=== PATIENT | male | born 1985 | race Caucasian/White ===

== ENCOUNTER 2020-05-30 12:45 | Emergency (ER) | payer OTHER, SELFPAY ==
[2020-05-30 13:00] VITALS: BP 125/81; PULSE 87; RESP 18; TEMP 36.2; O2SAT 98; BMI 24.3
--- NOTE | 2020-05-30 13:24 | HMH.EDUTC ---
[facility] [place] Disposition Clinical Impression: Jaw pain, non-TMJ, Pain, dental Disposition: Home, Self-Care Condition on Discharge: Good Instructions: DI for Dental Pain Additional Instructions: You have to follow up with a dentist. Take the medications as directed. Follow up with you primary care doctor. GO TO THE ER FOR ANY WORSENING SYMPTOMS OR CONCERNS Prescriptions: Ibuprofen [Ibuprofen 800mg Tablet] 800 mg PO Q8HP PRN #30 tab PRN Reason: Moderate Pain Transmission Status: Received by [facility] Amoxicillin [Amoxicillin 500mg Tab] 500 mg PO TID 10 Days #30 tab Transmission Status: Received by [facility] Referrals: Ephraim Bentley MD [Primary Care Provider] - Forms: Work/School Release Time of Disposition: 13:38 Medical Decision Making - Medical Records Medical records reviewed: No: I reviewed the patient's medical records. - Tito Inquiry Pt receiving controlled substance: No Vital Signs: 05/30/20 13:00 05/30/20 13:36 05/30/20 13:51 Temperature 97.2 F L 97.2 F L 97.2 F L Temperature Source Oral Oral Pulse Rate 87 87 Pulse Rate [Radial] 87 Respiratory Rate 18 18 18 Blood Pressure 125/81 125/81 Blood Pressure [Right Arm] 125/81 Blood Pressure Mean [Right Arm] 95 Blood Pressure Source Automatic Cuff Blood Pressure Source [Right Arm] Automatic Cuff Blood Pressure Position Sitting Blood Pressure Position [Right Arm] Sitting 02 Sat by Pulse Oximetry 98 Oxygen Delivery Method Room Air Room Air [facility] [place] HPI - General Stated complaint: wisdom teeth pain Time Seen by Provider: 05/30/20 13:24 Mode of Arrival: Ambulatory Source of Information: Patient Limitations: No Limitations Description of Symptoms (Recalled from Triage Doc. by RN): dental pain on and off for over a year HEENT Symptoms (Recalled from RN notes): No Resp Symptoms (Recalled from RN notes): No Skin Symptoms (Recalled from RN notes): No MS Symptoms (Recalled from RN notes): No Functional Status (Recalled from RN notes): wnl - History of Present Illness Provider Complaint: He c/o dental pain of his back teeth on both sides of his mouth. He states that he thinks that he is cutting wisdom teeth and it is painful. - Related Data Previous Rx's Medication Instructions Recorded Amoxicillin [Amoxicillin 500mg Tab] 500 mg PO TID 10 Days #30 tab 05/30/20 Ibuprofen [Ibuprofen 800mg 800 mg PO Q8HP PRN #30 tab 05/30/20 Tablet] Allergies Allergy/AdvReac Type Severity Reaction Status Date / Time No Known Allergies Allergy Verified 05/30/20 13:03 - Worker's Comp Is this a Worker's Comp case?: No H History - Hepatitis A Screen Drug use history?: No High risk sexual behaviors?: No History of sexually transmitted infection?: No Currently employed?: No Childcare worker?: No Do you have indoor plumbing?: Yes Do you have electricity?: Yes Attestation statement:: This patient has been screened for Hepatitis A risk factors. I have reviewed the patient's past medical history: Yes - Social History Alcohol Intake: never Occupational Status: other ROS Obtained: Yes All systems reviewed & no additional complaints - Constitutional Constitutional: Denies chills, Denies fever(s) - Eyes Eyes: Reports system reviewed and no additional complaints, except as docu - ENT Ears, Nose, Mouth, and Throat: Reports as per HPI - Cardiovascular Cardiovascular: Reports system reviewed and no additional complaints, except as docu - Respiratory Respiratory: Yes system reviewed and no additional complaints, except as docu - Gastrointestinal Gastrointestingal: Reports: system reviewed and no additional complaints, except as docu Physical Exam - General General appearance: alert, in no apparent distress - Head Head exam: atraumatic, normocephalic, normal inspection - Eye Eye exam: Present: normal appearance, PERRL, EOMI - ENT ENT exam: Present: normal exam
[2020-05-30 13:36] VITALS: BP 125/81; PULSE 87; RESP 18; TEMP 36.2; O2SAT 98
[2020-05-30 13:51] VITALS: BP 125/81; PULSE 87; RESP 18; TEMP 36.2; O2SAT 98
== END 2020-05-30 13:51 | disposition home or self-care (01) ==
PROVIDERS: Emergency Provider Nurse Practitioner Family; PCP Family Medicine
DX: K08.89 Other specified disorders of teeth and supporting structures (principal)
CPT/HCPCS: 99201

== ENCOUNTER 2020-12-27 12:55 | Emergency (ER) | payer OTHER, SELFPAY ==
[2020-12-27] VITALS (13 sets, daily range): BP systolic 94–135; BP diastolic 56–69; PULSE 71–108; RESP 18–24; TEMP 36.5–36.9; O2SAT 87–99; BMI 29.5; BMI 27.2
--- NOTE | 2020-12-27 13:03 | HMH.EDGENADL ---
ED Disposition Clinical Impression: Drug overdose, multiple drugs, Drug-induced interstitial lung disorders Disposition: Home, Self-Care Condition on Discharge: Good Additional Instructions: You have to see a outreach specialist and primary care physician for follow-up use inhalers as needed. Return to ED if new symptoms or worsening of symptoms. Consult with your PCP regarding rehabilitaion of drug abuse. Follow up with PCP in 48 hours. Prescriptions: Albuterol Sulfate [Albuterol Sulfate Hfa] 6.7 gm IH TID 30 Days #1 [email or web address] Transmission Status: Pending to [facility] levoFLOXacin [Levaquin 500mg tab] 500 mg PO DAILY 10 Days #10 tab Transmission Status: Pending to [facility] Montelukast Sodium [Singulair 10mg tablet] 10 mg PO PM 30 Days #30 tab Transmission Status: Pending to [facility] Referrals: Provider,Referral, [Primary Care Provider] - - Critical Care Critical Care Time: No Attestation: On , the high probability of a clinically significant, sudden or life threatening deterioration of the following system(s) required my full and direct attention, intervention and personal management. The time I documented below is in addition to time spent performing reported procedures but includes the following listed in this critical care notation. Medical Decision Making - Medical Records MR Comment: patient was given Narcan 2 doses in route to the emergency room by the motorcycle police and EMS. Patient arrived to the scene very alert and oriented. Chest x-ray shows chronic granulomatous changes due to probably too long history of in relation of drugs in different ways.Patchy consolidation throughout both lungs, likely representing. multifocal. infection. Patient does not have any leukocytosis or fever. His troponin is slightly elevated due to meth use it was repeated after 2 hours. His EKG is completely normal. suspected cocaine abuse and subsequent drud induced interstitial lung disorder. Patchy ground-glass opacification is present throughout both lungs. This is. nonspecific, but could represent acute infection, pulmonary edema,. pulmonary. hemorrhage, or acute hypersensitivity pneumonitis. Clinical and. laboratory. correlation is recommended. His EKG was normal was repeated and was normal. He denies any history of chest pain. He has been using cocaine and the short period of anoxia may contributed to this. - Tito Inquiry Pt receiving controlled substance: No Tito was queried for this patient: No Vital Signs: 12/27/20 12:56 12/27/20 13:30 12/27/20 14:00 Temperature 97.7 F Temperature Source Oral Pulse Rate 98 H 98 H Pulse Rate [Right] 108 H Respiratory Rate 24 20 22 Blood Pressure 129/69 121/66 Blood Pressure [Right Arm] 135/66 Blood Pressure Mean [Right Arm] 89 Blood Pressure Source [Right Arm] Automatic Cuff 02 Sat by Pulse Oximetry 91 L 99 99 Oxygen Delivery Method Nasal Cannula Oxygen Flow Rate (LPM) 4 12/27/20 14:30 12/27/20 15:00 12/27/20 15:30 Temperature Temperature Source Pulse Rate 100 H 95 H 91 H Pulse Rate [Right] Respiratory Rate 24 18 18 Blood Pressure 128/68 120/64 112/60 Blood Pressure [Right Arm] Blood Pressure Mean [Right Arm] Blood Pressure Source [Right Arm] 02 Sat by Pulse Oximetry 97 97 94 L Oxygen Delivery Method Oxygen Flow Rate (LPM) 12/27/20 16:00 12/27/20 16:30 12/27/20 17:30 Temperature Temperature Source Pulse Rate 87 89 86 Pulse Rate [Right] Respiratory Rate 18 18 20 Blood Pressure 110/60 112/56 L 113/66 Blood Pressure [Right Arm] Blood Pressure Mean [Right Arm] Blood Pressure Source [Right Arm] 02 Sat by Pulse Oximetry 95 98 94 L Oxygen Delivery Method Nasal Cannula Nasal Cannula Oxygen Flow Rate (LPM) 4 12/27/20 18:34 12/27/20 18:39 12/27/20 18:40 Temperature Temperature Source Pulse Rate 97 H 90 Pulse Rate [Right] Respir
--- NOTE | 2020-12-27 14:20 | CT_ITS ---
PROCEDURE INFORMATION: Exam: CT Head Without Contrast Exam date and time: 12/27/2020 2:20 PM Age: 35 years old Clinical indication: Injury or trauma; Other: Od/fall; Abrasion; Forehead TECHNIQUE: Imaging protocol: Computed tomography of the head without contrast. 3D rendering (Not supervised by radiologist): MIP and/or 3D reconstructed images were created by the technologist. Radiation optimization: All CT scans at this facility use at least one of these dose optimization techniques: automated exposure control; mA and/or kV adjustment per patient size (includes targeted exams where dose is matched to clinical indication); or iterative reconstruction. COMPARISON: No relevant prior studies available. FINDINGS: Brain: No acute intracranial hemorrhage, cerebral edema, or midline shift. Cerebral ventricles: No hydrocephalus. Paranasal sinuses: Right maxillary and frontal sinusitis is present. Mastoid air cells: Visualized mastoid air cells are well aerated. Orbital cavity: Unremarkable as visualized. Bones/joints: No acute fracture. Soft tissues: Unremarkable. IMPRESSION: 1. No acute intracranial abnormality. 2. Right frontal and maxillary sinusitis
--- NOTE | 2020-12-27 14:38 | XR_ITS ---
PROCEDURE INFORMATION: Exam: XR Chest Exam date and time: 12/27/2020 2:38 PM Age: 35 years old Clinical indication: Shortness of breath; Additional info: Desat TECHNIQUE: Imaging protocol: XR of the chest. Views: 1 view. COMPARISON: No relevant prior studies available. FINDINGS: Lungs: There is patchy consolidation throughout both lungs, likely representing multifocal infection. A calcified granuloma is noted within the inferior left lung. Pleural spaces: Unremarkable. No pleural effusion. No pneumothorax. Heart/Mediastinum: Unremarkable. No cardiomegaly. Bones/joints: Unremarkable. IMPRESSION: Patchy consolidation throughout both lungs, likely representing multifocal infection.
--- NOTE | 2020-12-27 15:53 | ECG_ITS ---
APPROVED REPORT Exam: Resting ECG HR:88 bpm ECG Measurements Heart Rate 88 AXES VA 130 P 69 QRSd 88 QRS 76 QT 382 T 66 QTc 462 Conclusion Normal sinus rhythm Normal ECG Electronically signed by : John Cook, 12/28/2020 08:35:23
[2020-12-27 15:57] LABS: Basophils % 0.6 % (0.1-2.0); Eosinophils # 0.1 K/mm3 (0.0-0.4); Eosinophils % 0.9 % (0.1-12.0); Hematocrit 44.1 % (42.0-52.0); Hemoglobin 15.1 g/dL (14.1-18.0); Lymphocytes # 0.7 K/mm3 (0.7-4.5); Lymphocytes % 10.9 % (10-50); Mean Corpuscular HGB Conc 34.2 g/dL (31.8-35.4); Mean Corpuscular Hemoglobin 31.4 pg (27.0-31.2); Mean Corpuscular Volume 91.7 fl (80-94); Mean Platelet Volume 7.4 fl (7.4-10.4); Monocytes # 0.3 K/mm3 (0.1-1.0); Monocytes % 4.2 % (1.7-9.3); Neutrophils # 5.3 K/mm3 (1.8-7.8); Neutrophils % 83.3 % (37.0-80.0); Platelet Count 166 K/mm3 (142-424); Red Blood Count 4.81 M/mm3 (4.60-6.20); Red Cell Distribution Width 14.7 % (11.5-17.5); White Blood Count 6.4 K/mm3 (4.8-10.8)
[2020-12-27 16:04] LABS: Chloride 108 mmol/L (98-107); Potassium 3.6 mmoL/L (3.5-5.1); Sodium 137 mmol/L (136-145)
[2020-12-27 16:07] LABS: Alanine Aminotransferase 211 U/L (12-78); Albumin Level 3.7 g/dl (3.5-5.0); Albumin/Globulin Ratio 1.4 (1.1-1.8); Alkaline Phosphatase 83 U/L (38-126); Anion Gap 10.6 mEq/L (5-15); Aspartate Amino Transferase 107 U/L (17-59); Bilirubin,Total 0.8 mg/dl (0.2-1.3); Blood Urea Nitrogen 23 mg/dl (9-20); Carbon Dioxide 22 mmol/L (22.0-30.0); Creatinine Clearance Estimated 140 mL/min (50-200); Estimated Glomerular Filt Rate 96 ml/min (>60); GFR (African American) 116 ML/MIN (>60); Globulin 2.7 g/dL (1.3-3.2); Total Protein,Serum 6.4 g/dl (6.3-8.2)
[2020-12-27 16:08] LABS: Calcium 8.4 mg/dl (8.4-10.2); Glucose 121 mg/dl (74-100)
[2020-12-27 16:17] LABS: NT Pro Brain Natriuretic Pep. 67.1 pg/mL (0-125)
[2020-12-27 16:20] LABS: Troponin I 0.07 ng/ml (0.00-0.034)
--- NOTE | 2020-12-27 17:41 | CT_ITS ---
PROCEDURE INFORMATION: Exam: CT Chest With Contrast; Diagnostic Exam date and time: 12/27/2020 5:41 PM Age: 35 years old Clinical indication: Shortness of breath; Patient HX: SOA; Additional info: SOB TECHNIQUE: Imaging protocol: Diagnostic computed tomography of the chest with contrast. Radiation optimization: All CT scans at this facility use at least one of these dose optimization techniques: automated exposure control; mA and/or kV adjustment per patient size (includes targeted exams where dose is matched to clinical indication); or iterative reconstruction. Contrast material: ISOVUE; Contrast volume: 75 ml; Contrast route: IV; COMPARISON: CR XR CHEST PORTABLE 12/27/2020 2:47 PM FINDINGS: Lungs: Patchy ground-glass opacification is present throughout both lungs. This is nonspecific, but could represent acute infection, pulmonary edema, pulmonary hemorrhage, or acute hypersensitivity pneumonitis. Clinical and laboratory correlation is recommended. Interlobular septal thickening or interstitial edema is also noted. A calcified granuloma is present in the left lower lobe. Pleural spaces: Unremarkable. No pneumothorax. No pleural effusion. Heart: Unremarkable. No cardiomegaly. No pericardial effusion. Aorta: Unremarkable. No aortic aneurysm. Lymph nodes: Calcified mediastinal and left hilar lymph nodes are present, likely due to old granulomatous disease. Bones/joints: Unremarkable. No acute fracture. Soft tissues: Unremarkable. IMPRESSION: Patchy ground-glass opacification is present throughout both lungs. This is nonspecific, but could represent acute infection, pulmonary edema, pulmonary hemorrhage, or acute hypersensitivity pneumonitis. Clinical and laboratory correlation is recommended.
[2020-12-27 18:21] LABS: Coronavirus 19, PCR Not Detected (NotDetected); Influenza A, PCR Not Detected (NotDetected); Influenza B, PCR Not Detected (NotDetected)
[2020-12-27 18:28] LABS: Troponin I 0.09 ng/ml (0.00-0.034)
--- NOTE | 2020-12-27 19:07 | ECG_ITS ---
APPROVED REPORT Exam: Resting ECG HR:74 bpm ECG Measurements Heart Rate 74 AXES W[place] 132 P 45 QRSd 84 QRS 78 QT 398 T 72 QTc 441 Conclusion Normal sinus rhythm Normal ECG Electronically signed by : John Cook, 12/28/2020 08:34:51
--- NOTE | 2020-12-27 19:07 | PC.NURSE ---
obtained a repeat EKG per Dr. Velez.
== END 2020-12-27 19:21 | disposition home or self-care (01) ==
PROVIDERS: Emergency Provider Internal Medicine
DX: T50.911A Poisoning by multiple unspecified drugs, medicaments and biological substances, accidental (unintentional), initial encounter (principal); J70.4 Drug-induced interstitial lung disorders, unspecified
CPT/HCPCS: 36415; 70450; 71045; 71260; 80053; 83880; 84484; 85025; 93005; 96365; 96372; 99202; 99284; G0463; J2405; Q9967; U0003